=== PATIENT | female | born 1930 | race Caucasian/White ===

== ENCOUNTER → 2016-07-03 | Outpatient (CLI) | payer MEDICARE ==
[2016-07-03 11:37] LABS: HEMOGLOBIN 14.1 g/dL (12.2-16.2); LYMPH # 1.4 K/mm3 (0.7-4.5); LYMPH % 13.1 % (10-50.0)
[2016-07-03 13:33] LABS: BUN 14 mg/dL (7-18)
[2016-07-03 14:45] LABS: GFR (ESTIMATED) 68 ML/MIN (59-)
== END ==
LOC: LAB 11:20
PROVIDERS: Orthopaedic Surgery
DX: Z01.810 Encounter for preprocedural cardiovascular examination (principal); Z01.812 Encounter for preprocedural laboratory examination; Z01.818 Encounter for other preprocedural examination